=== PATIENT | male | born 1970 | race Caucasian/White ===

== ENCOUNTER 2019-12-11 21:08 | Emergency (ER) | payer OTHER ==
[~2019-12-11] VITALS: Ht 182.9 cm; Wt 90.6 kg
[2019-12-11 21:09] VITALS: BP 157/101
[2019-12-11] MEDS ORDERED: FLUORESCEIN OPHTHALMIC 1 MG STRIP ONE (21:14)
[2019-12-11] MEDS ORDERED: ERYTHROMYCIN OPHTH 0.5%, 1GM RIGHTEYE SCH (22:00)
--- NOTE | 2019-12-11 22:27 | NUR ---
PT D/C WITH D/C SUMMARY AND SCRIPTS. PT MEDICATED PER OCT. PT DENIES ANY OTHER NEEDS PERTAINING TO THIS VISIT. PT AMBULATES TO REGISTRATION DESK WITH STEADY GAIT FOR D/C HOME.
== END 2019-12-11 22:33 | disposition home or self-care (01) ==
LOC: ED 22:00
DX: T15.01XA Foreign body in cornea, right eye, initial encounter (principal); X58.XXXA Exposure to other specified factors, initial encounter; Y93.89 Activity, other specified; Y92.89 Other specified places as the place of occurrence of the external cause; Y99.0 Civilian activity done for income or pay
CPT/HCPCS: 65222; 99283; 99284

== ENCOUNTER 2021-04-29 11:44 | Inpatient (IN) | payer OTHER ==
[~2021-04-29] VITALS: Ht 182.9 cm; Wt 90.3 kg
--- NOTE | 2021-04-29 12:46 | NUR ---
human resources analyst: Pt ambulatory to room from lobby at this time.
[2021-04-29 12:57] LABS: BASOPHILS % (AUTO) 1 % (0-1); EOSINOPHILS % (AUTO) 0 % (1-7); LYMPHOCYTES % (AUTO) 26 % (22-44); MEAN CORPUSCULAR HEMOGLOBIN 29.1 pg (27.5-34.5); MEAN CORPUSCULAR HGB CONC 33.5 g/dL (33.2-36.2); MEAN PLATELET VOLUME 7.6 fL (7.4-10.4); MONOCYTES % (AUTO) 8 % (2-9); NEUTROPHILS % (AUTO) 65 % (42-75); PLATELET COUNT 172 x10^3/uL (130-400); RED BLOOD COUNT 5.35 x10^6/uL (4.38-5.82); RED CELL DISTRIBUTION WIDTH 13.7 % (9.4-14.8)
[2021-04-29 13:11] LABS: ALBUMIN 3.7 g/dL (3.4-5.0); ANION GAP 7 mmol/L (5-15); CALCIUM 8.7 mg/dL (8.5-10.1); CHLORIDE 106 mmol/L (98-107)
[2021-04-29 13:15] LABS: ALANINE AMINOTRANSFERASE 93 U/L (12-78); ALKALINE PHOSPHATASE 66 U/L (45-117); BILIRUBIN,TOTAL 0.4 mg/dL (0.2-1.0); CREATININE 2.58 mg/dL (0.7-1.3); TOTAL PROTEIN 8.5 g/dL (6.4-8.2)
--- NOTE | 2021-04-29 13:16 | NUR ---
GERRY RODRIGEZ, AT BS FOR PT HISTORY AND ASSESSMENT. PT ATTACHED TO VS MONITORS AND EDUCATED ON ER PROCESS AND POC. PT HAS CALL LIGHT WITHIN REACH AND DENIES ANY NEEDS AT THIS TIME. AWAITING ORDERS FROM PROVIDER.
[2021-04-29] MEDS ORDERED: DEXAMETHASONE 4 MG/ML, 1ML IV ONE (13:30)
[2021-04-29] MEDS ORDERED: SODIUM CHLORIDE 0.9% 1,000ML IVBOLUS ONE (13:30)
[2021-04-29] MEDS ORDERED: DEXAMETHASONE 4 MG/ML, 1ML ONE (13:34)
[2021-04-29 14:22] LABS: TROPONIN I < 0.015 ng/mL (0.000-0.045)
--- NOTE | 2021-04-29 14:36 | NUR ---
ASSUMING CARE OF PT AFTER BEDSIDE REPORT FROM TUCKER SHARMA AND GOOD SHARMA.
[2021-04-29] MEDS ORDERED: SODIUM CHLORIDE FLUSH 10ML SYR IVF PRN (15:00)
[2021-04-29] MEDS ORDERED: SODIUM CHLORIDE 0.9% 1,000 ML IV ONE (15:00)
[2021-04-29] MEDS: HEPARIN 5,000 UNITS/ML, 1ML SQ SCH ×2 (15:11→23:30)
[2021-04-29] MEDS: LACTATED RINGERS 1,000 ML IV SCH ×2 (15:26→21:17)
[2021-04-29] MEDS ORDERED: SENNA/DOCUSATE TABLET PO PRN (15:30)
[2021-04-29] MEDS ORDERED: ONDANSETRON 2MG/ML, 2ML IVPush PRN (15:30)
[2021-04-29] MEDS ORDERED: POLYETHYLENE GLYCOL 17 GM PACKET PO PRN (15:30)
[2021-04-29] MEDS ORDERED: ONDANSETRON ODT 4 MG PO PRN (15:30)
[2021-04-29] MEDS ORDERED: ACETAMINOPHEN 500 MG TABLET PO PRN (16:00)
[2021-04-29 16:02] LABS: D-DIMER (DIC) 0.93 ug/mlFEU (0.00-0.52); PROTIME 10.2 Seconds (9.6-11.5)
[2021-04-29 18:32] VITALS: BP 125/86
[2021-04-29] MEDS ORDERED: MELATONIN 5 MG TABLET PO SCH (21:00)
[2021-04-29] MEDS: THIAMINE 100MG TABLET PO SCH (21:13)
[2021-04-29] MEDS: ASCORBIC ACID 500 MG TABLET PO SCH (21:14)
[2021-04-30 01:37] VITALS: BP 109/70
[2021-04-30] MEDS: LACTATED RINGERS 1,000 ML IV SCH (04:57)
[2021-04-30 05:55] LABS: BASOPHILS % (AUTO) 0 % (0-1); EOSINOPHILS % (AUTO) 0 % (1-7); LYMPHOCYTES % (AUTO) 27 % (22-44); MEAN CORPUSCULAR HEMOGLOBIN 29.7 pg (27.5-34.5); MEAN CORPUSCULAR HGB CONC 34.5 g/dL (33.2-36.2); MONOCYTES % (AUTO) 11 % (2-9); NEUTROPHILS % (AUTO) 62 % (42-75); PLATELET COUNT 164 x10^3/uL (130-400); RED BLOOD COUNT 4.45 x10^6/uL (4.38-5.82); RED CELL DISTRIBUTION WIDTH 13.2 % (9.4-14.8)
[2021-04-30 06:02] LABS: CHLORIDE 110 mmol/L (98-107)
[2021-04-30 06:15] LABS: ALANINE AMINOTRANSFERASE 67 U/L (12-78); ALBUMIN 2.8 g/dL (3.4-5.0); ALKALINE PHOSPHATASE 47 U/L (45-117); ANION GAP 7 mmol/L (5-15); BILIRUBIN,TOTAL 0.3 mg/dL (0.2-1.0); CALCIUM 8.3 mg/dL (8.5-10.1); CREATININE 1.66 mg/dL (0.7-1.3); TOTAL PROTEIN 6.3 g/dL (6.4-8.2)
[2021-04-30] MEDS: HEPARIN 5,000 UNITS/ML, 1ML SQ SCH (07:30)
[2021-04-30 08:26] VITALS: BP 124/82
[2021-04-30] MEDS ORDERED: DEXAMETHASONE 4 MG/ML, 1ML IVPush SCH ×2 (09:00)
[2021-04-30] MEDS: THIAMINE 100MG TABLET PO SCH (10:11)
[2021-04-30] MEDS: ASCORBIC ACID 500 MG TABLET PO SCH (10:11)
[2021-04-30] MEDS ORDERED: CHOLECALCIFEROL 5,000u TAB PO SCH (21:00)
[2021-04-30] MEDS ORDERED: ZINC SULFATE 220 MG CAPSULE PO SCH (21:00)
== END 2021-04-30 12:15 | disposition home or self-care (01) | DRG 177 ==
LOC: ED 14:35 → EDIP 14:36 → ED 16:11 → 3N 17:50
PROVIDERS: ADMIT Family Medicine; ATTEND Family Medicine
DX: U07.1 COVID-19 (principal); N17.0 Acute kidney failure with tubular necrosis; J06.9 Acute upper respiratory infection, unspecified; E86.0 Dehydration; K52.9 Noninfective gastroenteritis and colitis, unspecified; R09.02 Hypoxemia; R55 Syncope and collapse
CPT/HCPCS: 36415; 71045; 80053; 82728; 83605; 83615; 84145; 84484; 85025; 85049; 85379; 85384; 85610; 85730; 86140; 87040; 93005; 96360; 99285; G0378; J1100; J7030; J7120